=== PATIENT | male | born 1975 | race Caucasian/White ===

== ENCOUNTER → 2020-02-14 14:15 | Outpatient (CLI) | payer MEDICAID, SELFPAY ==
[2020-02-14 14:50] LABS: Chloride 102 mmol/L (98-107); Potassium 4.7 mmoL/L (3.5-5.1); Sodium 140 mmol/L (136-145)
[2020-02-14 14:52] LABS: Alanine Aminotransferase 51 U/L (12-78); Alkaline Phosphatase 57 U/L (38-126); Anion Gap 10.7 mEq/L (5-15); Aspartate Amino Transferase 60 U/L (17-59); Bilirubin,Total 0.4 mg/dl (0.2-1.3); Blood Urea Nitrogen 13 mg/dl (9-20); Carbon Dioxide 32 mmol/L (22.0-30.0); Estimated Glomerular Filt Rate 106 ml/min (>60); GFR (African American) 128 ML/MIN (>60)
[2020-02-14 14:53] LABS: Albumin Level 3.7 g/dl (3.5-5.0); Albumin/Globulin Ratio 1.1 (1.1-1.8); Calcium 9.1 mg/dl (8.4-10.2); Globulin 3.3 g/dL (1.3-3.2); Glucose 85 mg/dl (74-100)
[2020-02-14 15:10] LABS: T4 (Thyroxine) 6.2 ug/dl (5.53-11.0)
== END ==
PROVIDERS: Visit Provider Family Medicine
DX: R53.83 Other fatigue (principal)
CPT/HCPCS: 80053; 84436; 84443

== ENCOUNTER 2020-03-28 11:38 | Emergency (ER) | payer MEDICAID, SELFPAY ==
[2020-03-28 11:49] VITALS: BP 150/96; PULSE 75; RESP 20; TEMP 36.8; O2SAT 97; BMI 59.2
[2020-03-28 12:00] VITALS: BP 150/96; PULSE 75; RESP 97; TEMP 36.8; O2SAT 97; BMI 58.9
--- NOTE | 2020-03-28 12:11 | HMH.EDUTC ---
[facility] [place] Disposition Clinical Impression: Abscess Cellulitis Qualifiers: Site of cellulitis: extremity Site of cellulitis of extremity: upper extremity Laterality: left Qualified Code(s): L03.114 - Cellulitis of left upper limb Disposition: Home, Self-Care Condition on Discharge: Good Instructions: Cellulitis, Boil Additional Instructions: *Start antibiotic(s) immediately and be sure to take as ordered for the FULL length of time although you may be feeling better or start to see improvement in the next 24-48 hours *Monitor closely. Outlined redness so that you can monitor easier. Follow up immediately for new or worsening symptoms including but not limited to redness, swelling, streaking from site fever or chills. *Warm compress 15 minutes 3-4 times day *Never squeeze or pop these on your own. Seek immediate medical attention next time this occurs *Monitor Temp. Tylenol every 4 hours as needed and ibuprofen every 6 hours as needed (as long as your primary care doctor has told you that it is ok to take both. For fever, aches, pain. ER if no less that 101 despite Tylenol and ibuprofen Follow up with your family doctor/primary care physician in the next 48-72 hours if no improvement A wound culture was sent to lab, make sure to follow up in the next 48 hours to see if it is back to make sure that you are on the right medication Return if needed Straight to ER if any life threatening symptoms Prescriptions: clindamycin HCL [Clindamycin HCl 300mg Cap] 300 mg PO Q6 7 Days #28 cap Transmission Status: Pending to [facility] Mupirocin Calcium [Mupirocin 2% Cream 15gm] 1 applicatio TP TID 10 Days #1 tube Transmission Status: Pending to [facility] Referrals: Corby Stearns MD [Primary Care Provider] - As needed Time of Disposition: 12:19 Medical Decision Making - Sushant Inquiry Pt receiving controlled substance: No Sushant was queried for this patient: No Vital Signs: 03/28/20 11:49 03/28/20 12:00 Temperature 98.2 F 98.2 F Temperature Source Oral Oral Pulse Rate [Right Radial] 75 75 Respiratory Rate 20 97 H Blood Pressure [Right Arm] 150/96 H 150/96 H Blood Pressure Mean [Right Arm] 114 114 Blood Pressure Source [Right Arm] Automatic Cuff Blood Pressure Position [Right Arm] Sitting 02 Sat by Pulse Oximetry 97 97 Oxygen Delivery Method Room Air Room Air [facility] [place] HPI - General Stated complaint: spider bite left forearm Time Seen by Provider: 03/28/20 12:11 Mode of Arrival: Ambulatory Source of Information: Patient Limitations: No Limitations Description of Symptoms (Recalled from Triage Doc. by RN): PATIENT C/O ABSCESS TO LEFT FOREARM THAT HE SQUEEZED; REDNESS AND DRAINING NOTED HEENT Symptoms (Recalled from RN notes): No Resp Symptoms (Recalled from RN notes): No Skin Symptoms (Recalled from RN notes): Yes MS Symptoms (Recalled from RN notes): No Functional Status (Recalled from RN notes): WNL - History of Present Illness Provider Complaint: Patient states that he noticed a pimple like area on his left forearm a couple of days ago and he mashed it states that ever since he has been having swelling and redness with draining from the area States that he noticed redness and swelling was spreading on his arm so he come in to get it checked - Related Data Home Medications Medication Instructions Recorded Confirmed Furosemide [Furosemide 40MG tAB*] 40 mg PO DAILY 03/28/20 03/28/20 Potassium Chloride [K-Tab ER 10 10 meq PO DAILY 03/28/20 03/28/20 mEq] Previous Rx's Medication Instructions Recorded hydrocodone 5 mg-acetaminophen 325 1 tab PO BID PRN #30 tab 03/21/20 mg tablet Mupirocin Calcium [Mupirocin 2% 1 applicatio TP TID 10 Days #1 tube 03/28/20 Cream 15gm] clindamycin HCL [Clindamycin HCl 300 mg PO Q6 7 Days #28 cap 03/28/20 300mg Cap] Allergies Allergy/AdvReac Type Severity Reaction Status Date / Time No Known Allergies Allergy Verified 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
[2020-03-28 12:27] VITALS: BP 150/96; PULSE 75; RESP 20; TEMP 36.8; O2SAT 97
== END 2020-03-28 12:30 | disposition home or self-care (01) ==
LOC: UTC 12:38
PROVIDERS: Emergency Provider Nurse Practitioner; PCP Family Medicine
DX: S50.862A Insect bite (nonvenomous) of left forearm, initial encounter (principal); L03.114 Cellulitis of left upper limb
CPT/HCPCS: 87070; 87077; 87186; 87205; 99201

== ENCOUNTER → 2020-11-20 12:57 | Outpatient (CLI) | payer MEDICAID, SELFPAY | PROVIDERS: Visit Provider Family Medicine | DX: Z01.812 Encounter for preprocedural laboratory examination (principal); Z11.52 Encounter for screening for COVID-19 | CPT/HCPCS: U0003 ==

== ENCOUNTER → 2020-11-22 19:49 | Outpatient (CLI) | payer MEDICAID, SELFPAY | PROVIDERS: PCP Family Medicine; Visit Provider Family Medicine | DX: G47.33 Obstructive sleep apnea (adult) (pediatric) (principal) | CPT/HCPCS: 95811 ==

== ENCOUNTER → 2021-09-04 12:08 | Outpatient (CLI) | payer MEDICAID, SELFPAY ==
[2021-09-04 17:39] LABS: Basophils # 0.1 K/mm3 (0-0.2); Eosinophils # 0.2 K/mm3 (0.0-0.4); Eosinophils % 1.4 % (0.1-12.0); Hematocrit 47.2 % (42.0-52.0); Hemoglobin 15.3 g/dL (14.1-18.0); Lymphocytes # 2.4 K/mm3 (0.7-4.5); Lymphocytes % 20.6 % (10-50); Mean Corpuscular HGB Conc 32.4 g/dL (31.8-35.4); Mean Corpuscular Volume 83.2 fl (80-94); Mean Platelet Volume 7.8 fl (7.4-10.4); Monocytes # 0.5 K/mm3 (0.1-1.0); Monocytes % 4.6 % (1.7-9.3); Neutrophils # 8.2 K/mm3 (1.8-7.8); Neutrophils % 72.4 % (37.0-80.0); Platelet Count 275 K/mm3 (142-424); Red Blood Count 5.67 M/mm3 (4.60-6.20); Red Cell Distribution Width 16.1 % (11.5-17.5); White Blood Count 11.4 K/mm3 (4.8-10.8)
[2021-09-04 18:01] LABS: Alanine Aminotransferase 21 U/L (12-78); Albumin Level 4.1 g/dl (3.5-5.0); Albumin/Globulin Ratio 1.3 (1.1-1.8); Alkaline Phosphatase 60 U/L (38-126); Aspartate Amino Transferase 23 U/L (17-59); Bilirubin,Total 0.6 mg/dl (0.2-1.3); Blood Urea Nitrogen 12 mg/dl (9-20); Calcium 9.1 mg/dl (8.4-10.2); Carbon Dioxide 32 mmol/L (22.0-30.0); Chloride 99 mmol/L (98-107); Chol/HDL Ratio 5.2 (1-3.5); Cholesterol 229 mg/dl (140-200); Estimated Glomerular Filt Rate 105 ml/min (>60); GFR (African American) 127 ML/MIN (>60); Globulin 3.1 g/dL (1.3-3.2); Glucose 111 mg/dl (74-100); HDL Cholesterol 44 mg/dl (40-60); Sodium 138 mmol/L (136-145); Total Protein,Serum 7.2 g/dl (6.3-8.2); Triglycerides 239 mg/dl (30-150); VLDL Cholesterol 48 mg/dL (0-40)
[2021-09-04 18:12] LABS: Direct LDL Cholesterol 130.06 mg/dL (100-129)
[2021-09-04 18:16] LABS: 25-OH Vitamin D, Total 13.4 ng/mL (30-100)
[2021-09-04 18:17] LABS: T4 (Thyroxine) 7.1 ug/dl (5.53-11.0)
[2021-09-04 18:31] LABS: Prostate Specific Ag Screen 0.4 ng/ml (0.0-4.0); Thyroid Stimulating Hormone 1.65 uIU/mL (0.465-4.68)
== END ==
PROVIDERS: Visit Provider Emergency Medicine
DX: Z00.00 Encounter for general adult medical examination without abnormal findings (principal); I10 Essential (primary) hypertension; E55.9 Vitamin D deficiency, unspecified; Z12.5 Encounter for screening for malignant neoplasm of prostate
CPT/HCPCS: 80053; 80061; 82306; 84436; 84443; 85025; G0103

== ENCOUNTER → 2022-06-14 10:31 | Outpatient (CLI) | payer SELFPAY ==
--- NOTE | 2022-06-14 10:34 | XR_ITS ---
FINAL REPORT CLINICAL HISTORY: Plantar Fascitis FINDINGS: RIGHT FOOT Three views of the right foot demonstrate no acute fracture or dislocation. There are mild degenerative changes of the 1st MTP joint. There is a small posterior calcaneal spur. The soft tissues are unremarkable. IMPRESSION: Degenerative changes without acute bony abnormality. Reviewed, Interpreted and Dictated by Fidel Interiano III, MD Transcribed by Rossy Jaramillo Authenticated and [facility]
--- NOTE | 2022-06-14 10:34 | XR_ITS ---
FINAL REPORT CLINICAL HISTORY: Plantar Fascitis FINDINGS: LEFT FOOT Three views of the left foot demonstrate no acute fracture or dislocation. There are mild degenerative changes of the 1st MTP joint. There is a small posterior calcaneal spur. The soft tissues are unremarkable. IMPRESSION: Degenerative changes without acute bony abnormality. Reviewed, Interpreted and Dictated by Fidel Interiano III, MD Transcribed by Rossy Jaramillo Authenticated and [facility]
== END ==
PROVIDERS: PCP Nurse Practitioner Family; Visit Provider Nurse Practitioner Family
DX: M79.672 Pain in left foot (principal); M79.671 Pain in right foot; M72.2 Plantar fascial fibromatosis
CPT/HCPCS: 73630

== ENCOUNTER 2022-08-15 08:30 | Outpatient (RCR) | payer MEDICAID, SELFPAY ==
--- NOTE | 2022-07-31 08:53 | HMH.PTOPEV ---
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 Pt reports increased intensity of s/s over the last ~2 months, inability to tolerate work, and now ambulating in bilateral wlaking boots, 'but they haven't started to help yet.' Pt reports bialteral heel pain, and right foot pain 'close to the toes on the bottom.' Chief Complaint Pain Symptom Type Sharp,Stabbing,Burning Symptoms Relieved By Nothing Symptoms Aggravated By Standing,Physical Activity, Walking Prior Functional Limitations Standing,Walking Current Functional Limitations Standing,Walking Symptom Description Constant and Continuous Level of pain today (0-10) 10 Pain scale - at its best (0-10) 10 Pain scale - at its worst (0-10) 10 Ankle/Foot Eval Gait Observation General Gait Pattern Observation Antalgic Gait,Wide Based Gait Palpation Tenderness left Ankle/Foot Palpation Overall Comment 3/4 left plantar fascia insertion right Ankle/Foot Palpation Overall Comment 3/4 plantar fascia insertion, metheads between 1st-3rd ROM bilateral Ankle/Foot Dorsiflexion w/Knee Extended 0-10 Active Range Motion (degrees) Ankle/Foot Plantar Flexion Active Range 0-40 of Motion (degrees) Ankle/Foot Eversion Active Range of 0-10 Motion (degrees) Ankle/Foot Inversion Active Range of 0-35 Motion (degrees) MMT Ankle Dorsiflexion Strength Grade 5 Normal Ankle Plantarflexion Strength Grade 5 Normal Foot Eversion Strength Grade 5 Normal Foot Inversion Strength Grade 5 Normal Special Tests Foot Interdigital Neuroma Test Negative Left,Positive Right Outpatient Therapy Assessment Impairments Problems/Impairmments Palpation Tenderness,Impaired Gait Pattern,Impaired Walking, Impaired Standing,Impaired Work Activities,Subjective C/O Pain,Impaired Self Ca
== END 2022-08-15 08:35 | disposition home or self-care (01) ==
LOC: PT 08:30
PROVIDERS: PCP Nurse Practitioner Family; Visit Provider Podiatrist
DX: M79.671 Pain in right foot (principal); M79.672 Pain in left foot; M77.41 Metatarsalgia, right foot; M72.2 Plantar fascial fibromatosis
CPT/HCPCS: 97010; 97014; 97033; 97035; 97140; 97163; G0283

== ENCOUNTER → 2023-01-29 16:40 | Outpatient (CLI) | payer MEDICAID, SELFPAY ==
--- NOTE | 2023-01-29 16:52 | MR_ITS ---
PROCEDURE INFORMATION: Exam: MR Right Lower Extremity Other Than Joint Without Contrast; Foot Exam date and time: 01/29/2023 4:58 PM Age: 47 years old Clinical indication: Pain; Foot; Right; Additional info: Foot pain TECHNIQUE: Imaging protocol: Magnetic resonance imaging of the right lower extremity without contrast. Exam focused on the foot. COMPARISON: CR XR FOOT RT MIN 3V 06/14/2022 10:52 AM FINDINGS: Bones/joints: Small tibiotalar joint effusion. First MTP arthropathy. Tiny osseous cysts are seen within the 1st metatarsal head. Marrow edema is visualized involving the distal 4th phalanx. This can be post-traumatic. Infection is also within the differential, although there is no confluent T1 hypointensity to confirm osteomyelitis. Marrow edema is visualized involving the medial hallux sesamoid bone, likely representing sesamoiditis. LIGAMENTS: Anterior talofibular ligament: There is a focal decrease in caliber of the anterior talofibular ligament. This can be contributed by slice acquisition, although partial tear is also considered. Lisfranc ligament: No evidence of tear. TENDONS: Flexor tendons of foot: Unremarkable. No evidence of tear. Tibialis posterior tendon: Unremarkable as visualized. Peroneal tendons: Mild heterogeneous signal intensity of the peroneal tendons, with minimal adjacent fluid. This is consistent with tenosynovitis. Extensor tendons of foot: Unremarkable. No evidence of tear. Tibialis anterior tendon: Unremarkable as visualized. Achilles tendon: Heterogeneous signal intensity of the Achilles tendon, consistent with tendinosis. Tarsal canal (Sinus tarsi): Edema is seen within the sinus tarsi. Soft tissues: A small amount of fluid is seen within the retrocalcaneal bursa. Minimal soft tissue swelling of the plantar forefoot. T1 isointensity is identified plantar to the 2nd intermetatarsal space, and neuroma cannot be excluded. Plantar fascia: Mild edema is seen adjacent to the proximal plantar fascia, with plantar fasciitis. There is a tiny focus of T2 hyperintensity between the bands of the of the plantar fascia, and partial tear cannot be excluded. IMPRESSION: 1. Marrow edema is visualized involving the distal 4th phalanx. This can be post-traumatic. Infection is also within the differential, although there is no confluent T1 hypointensity to confirm osteomyelitis. Clinical correlation recommended. 2. Marrow edema is visualized involving the medial hallux sesamoid bone, likely representing sesamoiditis. 3. Mild plantar fasciitis. Partial tear cannot be excluded. 4. Achilles tendinosis. 5. Minimal tenosynovitis of the peroneal tendons. 6. First MTP arthropathy. 7. T1 isointensity is identified plantar to the 2nd intermetatarsal space, and neuroma cannot be excluded. 8. Additional findings described above.
[2023-01-29 17:07] LABS: Basophils # 0.1 K/mm3 (0-0.2); Basophils % 0.4 % (0.1-2.0); Eosinophils # 0.2 K/mm3 (0.0-0.4); Eosinophils % 1.5 % (0.1-12.0); Hematocrit 45.6 % (42.0-52.0); Hemoglobin 14.5 g/dL (14.1-18.0); Lymphocytes # 3.4 K/mm3 (0.7-4.5); Lymphocytes % 23.3 % (10-50); Mean Corpuscular HGB Conc 31.7 g/dL (31.8-35.4); Mean Corpuscular Volume 82.2 fl (80-94); Mean Platelet Volume 7.3 fl (7.4-10.4); Monocytes # 0.7 K/mm3 (0.1-1.0); Monocytes % 4.6 % (1.7-9.3); Neutrophils # 10.1 K/mm3 (1.8-7.8); Neutrophils % 70.2 % (37.0-80.0); Platelet Count 267 K/mm3 (142-424); Red Blood Count 5.55 M/mm3 (4.60-6.20); Red Cell Distribution Width 14.6 % (11.5-17.5); White Blood Count 14.4 K/mm3 (4.8-10.8)
[2023-01-29 17:23] LABS: Alanine Aminotransferase 25 U/L (12-78); Albumin/Globulin Ratio 1.4 (1.1-1.8); Alkaline Phosphatase 90 U/L (38-126); Anion Gap 12.2 mEq/L (5-15); Aspartate Amino Transferase 31 U/L (17-59); Bilirubin,Total 0.2 mg/dl (0.2-1.3); Blood Urea Nitrogen 24 mg/dl (9-20); Calcium 8.9 mg/dl (8.4-10.2); Carbon Dioxide 29 mmol/L (22.0-30.0); Chloride 102 mmol/L (98-107); Chol/HDL Ratio 5.4 (1-3.5); Cholesterol 223 mg/dl (140-200); Estimated Glomerular Filt Rate 81 ml/min (>60); GFR (African American) 98 ML/MIN (>60); Globulin 2.9 g/dL (1.3-3.2); Glucose 98 mg/dl (74-100); HDL Cholesterol 41 mg/dl (40-60); Potassium 4.2 mmoL/L (3.5-5.1); Sodium 139 mmol/L (136-145); Total Protein,Serum 6.9 g/dl (6.3-8.2); Triglycerides 308 mg/dl (30-150); VLDL Cholesterol 62 mg/dL (0-40)
[2023-01-29 17:34] LABS: Direct LDL Cholesterol 126.85 mg/dL (100-129)
[2023-01-29 17:56] LABS: Prostate Specific Ag Screen 0.5 ng/ml (0.0-4.0); Thyroid Stimulating Hormone 1.18 uIU/mL (0.465-4.68)
== END ==
PROVIDERS: PCP Nurse Practitioner Family; Visit Provider Podiatrist
DX: M79.671 Pain in right foot (principal); M21.6X1 Other acquired deformities of right foot; M77.41 Metatarsalgia, right foot; M21.6X2 Other acquired deformities of left foot; Z13.29 Encounter for screening for other suspected endocrine disorder; Z82.49 Family history of ischemic heart disease and other diseases of the circulatory system; Z84.1 Family history of disorders of kidney and ureter; Z13.220 Encounter for screening for lipoid disorders; E66.01 Morbid (severe) obesity due to excess calories; Z68.42 Body mass index [BMI] 45.0-49.9, adult; Z79.899 Other long term (current) drug therapy; Z12.5 Encounter for screening for malignant neoplasm of prostate
CPT/HCPCS: 36415; 73718; 80053; 80061; 84443; 85025; G0103

== ENCOUNTER → 2023-03-20 09:10 | Outpatient (CLI) | payer MEDICAID, SELFPAY ==
[2023-03-20 09:53] LABS: Basophils # 0.1 K/mm3 (0-0.2); Basophils % 0.6 % (0.1-2.0); Eosinophils # 0.2 K/mm3 (0.0-0.4); Eosinophils % 1.3 % (0.1-12.0); Hematocrit 49.4 % (42.0-52.0); Hemoglobin 15.4 g/dL (14.1-18.0); Lymphocytes # 2.5 K/mm3 (0.7-4.5); Lymphocytes % 21.5 % (10-50); Mean Corpuscular HGB Conc 31.2 g/dL (31.8-35.4); Mean Corpuscular Hemoglobin 25.9 pg (27.0-31.2); Mean Corpuscular Volume 82.8 fl (80-94); Mean Platelet Volume 7.5 fl (7.4-10.4); Monocytes # 0.5 K/mm3 (0.1-1.0); Monocytes % 4.3 % (1.7-9.3); Neutrophils # 8.4 K/mm3 (1.8-7.8); Neutrophils % 72.2 % (37.0-80.0); Platelet Count 281 K/mm3 (142-424); Red Blood Count 5.97 M/mm3 (4.60-6.20); Red Cell Distribution Width 14.9 % (11.5-17.5); White Blood Count 11.6 K/mm3 (4.8-10.8)
[2023-03-20 10:25] LABS: Erythrocyte Sedimentation Rate 12 mm/hr (0-15)
== END ==
PROVIDERS: PCP Family Medicine; Visit Provider Internal Medicine Medical Oncology
DX: D72.829 Elevated white blood cell count, unspecified (principal)
CPT/HCPCS: 36415; 85025; 85651

== ENCOUNTER → 2023-03-26 16:07 | Outpatient (CLI) | payer MEDICAID, SELFPAY ==
--- NOTE | 2023-03-26 16:12 | XR_ITS ---
FINAL REPORT CLINICAL HISTORY: foot pain COMPARISON: 06/14/2022 FINDINGS: AP, oblique and lateral views of the left foot were obtained. There is no prior exam for comparison. There is no acute fracture or dislocation. There is mild degenerative disease of the 1st metatarsophalangeal joint. Soft tissues are normal. IMPRESSION: No acute osseous abnormality of the left foot. Reviewed, Interpreted and Dictated by Dee Menezes MD Transcribed by Norah Rubin Authenticated and [facility]
== END ==
PROVIDERS: PCP Emergency Medicine; Visit Provider Podiatrist
DX: M79.672 Pain in left foot (principal)
CPT/HCPCS: 73630

== ENCOUNTER 2023-07-25 12:02 | Outpatient (CLI) | payer MEDICAID, SELFPAY ==
--- NOTE | 2023-07-25 12:08 | ECG_ITS ---
APPROVED REPORT Exam: Resting ECG HR:67 bpm ECG Measurements Heart Rate 67 AXES ID 143 P 35 QRSd 105 QRS 66 QT 385 T -4 QTc 401 Conclusion SINUS RHYTHM Isolated Q-wave in III ABNORMAL ECG UNCONFIRMED REPORT Electronically signed by : Rah Vann MD 07/26/2023 13:40:45
--- NOTE | 2023-07-25 12:21 | XR_ITS ---
FINAL REPORT TECHNIQUE: Chest PA & Lateral CLINICAL HISTORY: Preoperative testing, hypertension COMPARISON: None FINDINGS: 2 views of the chest were performed. The heart size is normal. The mediastinum is within normal limits. There is no acute cardiopulmonary process. There are no pleural effusions. There is no pneumothorax. The bony thorax appears intact. IMPRESSION: No acute cardiopulmonary process. Reviewed, Interpreted and Dictated by Lionel Boyce MD Transcribed by Radha Covarrubias Authenticated and [facility]
[2023-07-25 12:30] LABS: Basophils # 0.1 K/mm3 (0-0.2); Basophils % 0.7 % (0.1-2.0); Eosinophils # 0.3 K/mm3 (0.0-0.4); Eosinophils % 2.1 % (0.1-12.0); Hematocrit 46.7 % (42.0-52.0); Hemoglobin 15.5 g/dL (14.1-18.0); Lymphocytes # 2.5 K/mm3 (0.7-4.5); Lymphocytes % 21.3 % (10-50); Mean Corpuscular HGB Conc 33.2 g/dL (31.8-35.4); Mean Corpuscular Hemoglobin 26.6 pg (27.0-31.2); Mean Corpuscular Volume 80.2 fl (80-94); Mean Platelet Volume 7.3 fl (7.4-10.4); Monocytes # 0.4 K/mm3 (0.1-1.0); Monocytes % 3.5 % (1.7-9.3); Neutrophils # 8.6 K/mm3 (1.8-7.8); Neutrophils % 72.3 % (37.0-80.0); Platelet Count 208 K/mm3 (142-424); Red Blood Count 5.82 M/mm3 (4.60-6.20); Red Cell Distribution Width 15.4 % (11.5-17.5); White Blood Count 11.9 K/mm3 (4.8-10.8)
[2023-07-25 13:17] LABS: Alanine Aminotransferase 20 U/L (12-78); Albumin/Globulin Ratio 1.3 (1.1-1.8); Alkaline Phosphatase 76 U/L (38-126); Anion Gap 12.4 mEq/L (5-15); Aspartate Amino Transferase 23 U/L (17-59); Bilirubin,Total 0.3 mg/dl (0.2-1.3); Blood Urea Nitrogen 12 mg/dl (9-20); Calcium 9.3 mg/dl (8.4-10.2); Carbon Dioxide 28 mmol/L (22.0-30.0); Chloride 102 mmol/L (98-107); Estimated Glomerular Filt Rate 91 ml/min (>60); GFR (African American) 110 ML/MIN (>60); Globulin 3.1 g/dL (1.3-3.2); Glucose 105 mg/dl (74-100); Potassium 4.4 mmoL/L (3.5-5.1); Sodium 138 mmol/L (136-145); Total Protein,Serum 7.1 g/dl (6.3-8.2)
== END 2023-07-25 23:59 ==
LOC: RT 12:04
PROVIDERS: PCP Nurse Practitioner Family; Visit Provider Podiatrist
DX: Z01.818 Encounter for other preprocedural examination (principal); R60.0 Localized edema
CPT/HCPCS: 71046; 80053; 85025; 93005

== ENCOUNTER 2023-10-31 18:00 | Outpatient (CLI) | payer MEDICAID, SELFPAY ==
[2023-10-31 18:46] LABS: Basophils # 0.1 K/mm3 (0-0.2); Basophils % 0.4 % (0.1-2.0); Eosinophils # 0.1 K/mm3 (0.0-0.4); Eosinophils % 1.3 % (0.1-12.0); Hematocrit 45.8 % (42.0-52.0); Hemoglobin 14.5 g/dL (14.1-18.0); Lymphocytes # 2.8 K/mm3 (0.7-4.5); Lymphocytes % 26.1 % (10-50); Mean Corpuscular HGB Conc 31.7 g/dL (31.8-35.4); Mean Corpuscular Hemoglobin 26.5 pg (27.0-31.2); Mean Corpuscular Volume 83.5 fl (80-94); Mean Platelet Volume 8.6 fl (7.4-10.4); Monocytes # 0.5 K/mm3 (0.1-1.0); Monocytes % 4.3 % (1.7-9.3); Neutrophils # 7.3 K/mm3 (1.8-7.8); Neutrophils % 67.8 % (37.0-80.0); Platelet Count 234 K/mm3 (142-424); Red Blood Count 5.49 M/mm3 (4.60-6.20); Red Cell Distribution Width 15.7 % (11.5-17.5); White Blood Count 10.8 K/mm3 (4.8-10.8)
[2023-10-31 19:18] LABS: Alanine Aminotransferase 24 U/L (12-78); Albumin Level 3.9 g/dl (3.5-5.0); Albumin/Globulin Ratio 1.3 (1.1-1.8); Alkaline Phosphatase 77 U/L (38-126); Aspartate Amino Transferase 31 U/L (17-59); Bilirubin,Total 0.5 mg/dl (0.2-1.3); Blood Urea Nitrogen 15 mg/dl (9-20); Calcium 9.6 mg/dl (8.4-10.2); Carbon Dioxide 30 mmol/L (22.0-30.0); Chloride 104 mmol/L (98-107); Chol/HDL Ratio 5.3 (1-3.5); Cholesterol 221 mg/dl (140-200); Estimated Glomerular Filt Rate 91 ml/min (>60); GFR (African American) 110 ML/MIN (>60); Globulin 2.9 g/dL (1.3-3.2); Glucose 116 mg/dl (74-100); HDL Cholesterol 42 mg/dl (40-60); Sodium 140 mmol/L (136-145); Total Protein,Serum 6.8 g/dl (6.3-8.2); Triglycerides 377 mg/dl (30-150); VLDL Cholesterol 75 mg/dL (0-40)
[2023-10-31 19:20] LABS: Hemoglobin A1C 5.6 % (4.0-6.0)
[2023-10-31 19:29] LABS: Direct LDL Cholesterol 121.91 mg/dL (100-129)
[2023-10-31 19:41] LABS: 25-OH Vitamin D, Total 17.2 ng/mL (30-100)
[2023-10-31 19:49] LABS: Thyroid Stimulating Hormone 0.87 uIU/mL (0.465-4.68)
[2023-10-31 20:08] LABS: Vitamin B12 471 pg/mL (239-931)
[2023-11-03 17:38] LABS: Iron 64 ug/dL (49-181)
[2023-11-03 17:48] LABS: Total Iron Binding Capacity 344 ug/dL (261-462)
== END 2023-10-31 23:59 | disposition home or self-care (01) ==
LOC: LAB.DROPOF 11-01 09:09
PROVIDERS: PCP Family Medicine; Visit Provider Family Medicine
DX: R53.83 Other fatigue (principal); R71.8 Other abnormality of red blood cells; E55.9 Vitamin D deficiency, unspecified; Z68.43 Body mass index [BMI] 50.0-59.9, adult
CPT/HCPCS: 80053; 80061; 82306; 82607; 83036; 83540; 83550; 84443; 85025